=== PATIENT | female | born 1955 | race African-American/Black ===

== ENCOUNTER 2016-10-01 18:51 | Emergency (ER) | payer MEDICAID ==
[~2016-10-01] VITALS: Ht 180.3 cm; Wt 77.7 kg
[~2016-10-01 18:51] MED LIST: ASPI-1159 PO; GLYB5TAB7 PO; HYDR-519; LISI-604 PO; METF500T4 PO
[2016-10-01 19:10] VITALS: BP 129/68
== END 2016-10-01 21:28 | disposition left against medical advice (07) ==
LOC: ER 21:24
DX: Z53.21 Procedure and treatment not carried out due to patient leaving prior to being seen by health care provider (principal); I10 Essential (primary) hypertension; E11.9 Type 2 diabetes mellitus without complications; J44.9 Chronic obstructive pulmonary disease, unspecified; F17.210 Nicotine dependence, cigarettes, uncomplicated; Z91.048 Other nonmedicinal substance allergy status

== ENCOUNTER 2017-12-02 00:29 | Emergency (ER) | payer MEDICAID ==
[~2017-12-02] VITALS: Ht 167.6 cm; Wt 77.3 kg
[~2017-12-02 00:29] MED LIST changes: -METF500T4 PO; +METF500T6 PO
[2017-12-02] MEDS ORDERED: ALBUTEROL (0.083%) 2.5MG/3ML NEB HHN STA (01:26)
[2017-12-02] MEDS ORDERED: PREDNISONE 20MG TABLET PO STA (01:26)
[2017-12-02] MEDS ORDERED: IPRATROPIUM BROMIDE (0.02%) 0.5MG/2.5ML NEB HHN STA (01:26)
[2017-12-02 03:28] VITALS: BP 130/68
== END 2017-12-02 03:28 | disposition home or self-care (01) ==
LOC: ER 00:29
DX: J44.1 Chronic obstructive pulmonary disease with (acute) exacerbation (principal); E11.9 Type 2 diabetes mellitus without complications; I10 Essential (primary) hypertension; Z79.82 Long term (current) use of aspirin; Z79.899 Other long term (current) drug therapy; Z87.891 Personal history of nicotine dependence
CPT/HCPCS: 71045; 93005; 94640; 99284; J7512; J7611; Z7610

== ENCOUNTER 2018-02-20 18:43 | Emergency (ER) | payer SELFPAY ==
[~2018-02-20] VITALS: Ht 167.6 cm; Wt 79.0 kg
[~2018-02-20 18:43] MED LIST changes: +METF-414 PO; -METF500T6 PO
[2018-02-20 20:20] VITALS: BP 156/67
[2018-02-20] MEDS ORDERED: IPRATROPIUM BROMIDE (0.02%) 0.5MG/2.5ML NEB HHN STA (20:30)
[2018-02-20] MEDS ORDERED: PREDNISONE 20MG TABLET PO STA (20:30)
[2018-02-20] MEDS ORDERED: ALBUTEROL (0.083%) 2.5MG/3ML NEB HHN STA (20:30)
== END 2018-02-20 23:10 | disposition home or self-care (01) ==
LOC: ER 18:43
DX: J45.909 Unspecified asthma, uncomplicated (principal); E11.9 Type 2 diabetes mellitus without complications; I10 Essential (primary) hypertension; F17.200 Nicotine dependence, unspecified, uncomplicated; Z90.49 Acquired absence of other specified parts of digestive tract; Z98.890 Other specified postprocedural states; Z88.8 Allergy status to other drugs, medicaments and biological substances; Z79.899 Other long term (current) drug therapy
CPT/HCPCS: 71045; 93005; 94640; 99283; J7512; J7611